=== PATIENT | female | born 1990 | race Caucasian/White ===

== ENCOUNTER 2019-12-03 08:17 | Emergency (ER) | payer MEDICAID ==
[~2019-12-03] VITALS: Ht 161.3 cm; Wt 61.8 kg
[2019-12-03] MEDS ORDERED: PENI500T2 PO (08:30)
[2019-12-03] MEDS ORDERED: penicillin V potassium 500mg tablet PO ONE (08:30)
[2019-12-03] MEDS ORDERED: IBUP-1985 PO (08:30)
[2019-12-03] MEDS ORDERED: ibuprofen 200mg tablet PO ONE (08:30)
[2019-12-03 08:36] VITALS: BP 140/90
== END 2019-12-03 08:37 | disposition home or self-care (01) ==
LOC: ER 08:17
DX: K04.7 Periapical abscess without sinus (principal); F17.200 Nicotine dependence, unspecified, uncomplicated; Z79.2 Long term (current) use of antibiotics
CPT/HCPCS: 99283

== ENCOUNTER 2019-12-08 17:51 | Emergency (ER) | payer MEDICAID ==
[~2019-12-08] VITALS: Ht 160 cm; Wt 73.0 kg
[~2019-12-08 17:51] MED LIST: IBUP-1985 PO; PENI500T2 PO
[2019-12-08] MEDS ORDERED: LIDOcaine Viscous 15ml cup MM PRN (18:45)
[2019-12-08] MEDS ORDERED: IBUP-1986 PO (19:01)
[2019-12-08] MEDS ORDERED: LIDO20SO16 PO (19:01)
[2019-12-08] MEDS ORDERED: CLIN150C2 PO (19:01)
[2019-12-08] MEDS ORDERED: L. R1CAP4 PO (19:01)
[2019-12-08 19:07] VITALS: BP 150/78
== END 2019-12-08 19:10 | disposition home or self-care (01) ==
LOC: ER 17:52
DX: K08.89 Other specified disorders of teeth and supporting structures (principal)
CPT/HCPCS: 99283